=== PATIENT | male | born 1955 | race African-American/Black ===

== ENCOUNTER 2019-11-12 08:12 | Emergency (ER) | payer MEDICAID ==
[~2019-11-12] VITALS: Ht 182.9 cm; Wt 90.0 kg
[2019-11-12] MEDS ORDERED: SODIUM CHLORIDE 0.9% 1,000 ML IV ONE (08:49)
[2019-11-12 09:28] LABS: BASOPHILS % 0.8 % (0.0-2.0); EOSINOPHILS % 3.1 % (0.0-5.0); HEMATOCRIT. 45.8 % (42.0-52.0); HEMOGLOBIN. 15.4 g/dL (14.0-18.0); LYMPHOCYTES % 32.5 % (20.0-50.0); MEAN CORPUSCULAR HEMOGLOBIN 31.8 pg (28.0-32.0); MEAN CORPUSCULAR VOLUME 94.7 fL (80.0-94.0); MEAN PLATELET VOLUME 9.1 fl (7.4-10.4); MONOCYTES % 5.5 % (2.0-8.0); NEUTROPHILS % 58.1 % (40.0-76.0); PLATELET 161 x1000/uL (130-400); RED BLOOD CELL COUNT 4.84 mill/uL (4.7-6.1); RED CELL DISTRIBUTION WIDTH 13.3 % (11.6-14.6)
[2019-11-12 09:31] LABS: CHLORIDE 111 mEq/L (98-107)
[2019-11-12 11:18] LABS: CLARITY URINE CLEAR (CLEAR); COLOR URINE YELLOW (YELLOW); KETONES URINE NEGATIVE (NEGATIVE); LEUKOCYTE ESTERASE URINE NEGATIVE (NEGATIVE); NITRITE URINE NEGATIVE (NEGATIVE); OCCULT BLOOD URINE NEGATIVE (NEGATIVE); PROTEIN URINE NEGATIVE (NEGATIVE); SPECIFIC GRAVITY URINE 1.019 (1.005-1.030)
[2019-11-12 13:34] VITALS: BP 146/58
== END 2019-11-12 15:28 | disposition left against medical advice (07) ==
LOC: ER 08:28 → CANBEDREQ 11:35 → ER 15:28
DX: R55 Syncope and collapse (principal); E86.0 Dehydration; J84.9 Interstitial pulmonary disease, unspecified; I10 Essential (primary) hypertension; I69.351 Hemiplegia and hemiparesis following cerebral infarction affecting right dominant side
CPT/HCPCS: 36415; 71045; 80053; 81003; 84484; 85025; 87040; 96360; 99285; J7030